=== PATIENT | male | born 1990 | race Caucasian/White ===

== ENCOUNTER 2019-07-22 01:33 | Emergency (ER) | payer SELFPAY ==
[~2019-07-22] VITALS: Ht 170.2 cm; Wt 79.4 kg
[2019-07-22 02:25] LABS: Amphetamine Screen, Urine NEGATIVE (NEGATIVE); Barbiturate Scree,Urine NEGATIVE (NEGATIVE); Benzodiazephine Screen, Urine NEGATIVE (NEGATIVE); Cannabinoid Screen, Urine NEGATIVE (NEGATIVE); Cocaine Screen, Urine NEGATIVE (NEGATIVE); Opiate Scree,Urine NEGATIVE (NEGATIVE); Phencyclidine Screen, Urine NEGATIVE (NEGATIVE)
[2019-07-22 02:36] LABS: Salicylate 1.8 mg/dL (2.8-20.0)
[2019-07-22] MEDS ORDERED: cefTRIAXone SOD 1,000 MG VL IM ONE (02:45)
[2019-07-22 03:16] LABS: Acetaminophen < 2.0 ug/mL (10-30)
[2019-07-22 03:25] VITALS: BP 132/77
[2019-07-22] MEDS ORDERED: NEOMYCIN-BACITRACIN-POLYM 15GM TOP OINT TOP ONE (03:30)
== END 2019-07-22 03:57 | disposition home or self-care (01) ==
LOC: ER 01:33
DX: S41.111A Laceration without foreign body of right upper arm, initial encounter (principal); G92 Toxic encephalopathy; F10.129 Alcohol abuse with intoxication, unspecified; Y90.8 Blood alcohol level of 240 mg/100 ml or more; Z88.6 Allergy status to analgesic agent; W22.8XXA Striking against or struck by other objects, initial encounter; Y93.89 Activity, other specified; Y99.8 Other external cause status; Y92.89 Other specified places as the place of occurrence of the external cause
CPT/HCPCS: 12002; 36415; 73090; 80307; 80320; 80329; 96372; 99283; J0696